=== PATIENT | male | born 1995 | race Caucasian/White ===

== ENCOUNTER 2017-08-18 02:31 | Emergency (ER) | payer MEDICAID ==
[~2017-08-18] VITALS: Ht 177.8 cm; Wt 79.4 kg
[2017-08-18 02:34] VITALS: BP_SYST 131
[2017-08-18] MEDS ORDERED: NACL 0.9% 1,000 ML IV ONE (03:01)
[2017-08-18] MEDS ORDERED: PROCHLORPERAZINE EDISYLATE 10 MG/2 ML VIAL IM ONE (03:15)
[2017-08-18] MEDS ORDERED: ONDANSETRON HCL 4 MG/2 ML VIAL IVP ONE (03:15)
[2017-08-18 03:30] VITALS: BP_SYST 128
== END 2017-08-18 03:30 | disposition home or self-care (01) ==
LOC: SED 02:31
DX: F10.129 Alcohol abuse with intoxication, unspecified (principal); F17.210 Nicotine dependence, cigarettes, uncomplicated
CPT/HCPCS: 96372; 99283; J0780; J7030; J2405